=== PATIENT | male | born 1980 | race Two or more races ===

== ENCOUNTER 2023-02-05 13:55 | Emergency (ER) | payer BC, OTHER ==
[~2023-02-05] VITALS: Ht 172.7 cm; Wt 82.0 kg
[2023-02-05 14:00] VITALS: BP 140/96
[2023-02-05] MEDS ORDERED: HYDROcodone-ACET 10/325MG TAB PO ONE (14:30)
[2023-02-05] MEDS: LIDOCAINE 1% (LOCAL ANESTH.) PF 5ml SDV ID ONE ×2 (14:36→15:16)
[2023-02-05] MEDS ORDERED: TETANUS-DIPTH-ACEL PERTUSSIS 0.5ML SYR Tdap IM ONE (15:30)
[2023-02-05] MEDS ORDERED: HYDR-4902 PO (15:48)
== END 2023-02-05 15:58 | disposition home or self-care (01) ==
LOC: EEVIPCON 13:55 → ER 13:55
DX: S81.012A Laceration without foreign body, left knee, initial encounter (principal); M25.562 Pain in left knee; W55.12XA Struck by horse, initial encounter; Y93.89 Activity, other specified; Y92.89 Other specified places as the place of occurrence of the external cause; Y99.8 Other external cause status
CPT/HCPCS: 12002; 29505; 73700; 90471; 90715